=== PATIENT | male | born 1945 | race Caucasian/White ===

== ENCOUNTER 2017-04-02 12:00 | Inpatient (IN) | payer MEDICARE, OTHER ==
[2017-04-02] VITALS (12 sets, daily range): BP systolic 84–124; BP diastolic 50–79
[~2017-04-02] VITALS: Ht 175.3 cm; Wt 75.3 kg
--- NOTE | ~2017-04-02 | CON ---
[place], [place] REPORT OF CONSULTATION NAME: MARNI DONALDSON JR [facility] #: [id number] UNIT #: [id number] ROOM: 528 DOCTOR: DEDE ISAAC MD BIRTHDATE: [birth year] DOS: 04/03/2017 REQUESTING PHYSICIAN: Hospitalist services. REASON FOR CONSULTATION: Assess the patient's possibility of acute pneumonia. HISTORY OF PRESENT ILLNESS: This 71-year-old white male who has been very well known to me from the past. The patient has been hospitalized. Patient in [facility]. The patient was brought to the Emergency Room by the sister. The patient has been noted to have significant change in mental status, has noted severe hypertension with only palpable blood pressure as per sister of the patient. He was also noted with oxygen saturation of 80%. The patient was brought to the hospital eventually for further assessment. The patient has been noted with symptoms of coughing with chest congestion, intermittently recently as well. There were no symptoms of hemoptysis. The patient has not reported any symptoms of chest pain. He has been noted with history of chronic CVA with expressive aphasia, unable to give me any history by himself. Most of the history has been obtained from the patient from my past [facility] and in this hospital. REVIEW OF SYSTEMS: GENERAL: Cannot not be completed by the patient directly; however, the patient's sister reported symptoms of weakness, or fatigue. No symptoms of fever or chills. EYES: There were no blurry vision or diplopia described. ENT: There were no symptoms of sore throat, hoarseness, reported recently. RESPIRATORY: No upper respiratory symptoms. GASTROINTESTINAL: There were no symptoms of nausea, vomiting, diarrhea, abdominal pain, hematemesis, melena, or described incontinence of the stool. GENITOURINARY: There were no symptoms of dysuria, suprapubic pain, or hematuria. MUSCULOSKELETAL: There were no symptoms of joint pain described. SKIN: There were no symptoms of any lesions or rashes of the skin noted. CENTRAL NERVOUS SYSTEM: There were no symptoms of seizures the patient described. Remaining systems was noted partially for this and is reported as negative. PAST MEDICAL HISTORY: 1. Noted with a history of right hemiparesis. The patient has hemiplegia. The patient has expressive aphasia and oropharyngeal dysphagia, which has been treated since April 2014. The patient has regained some of his function with the reduction of the dysphagia with a past stroke. 2. History of uncomplicated severe persistent bronchial asthma. 3. Centrilobular emphysema. 4. Esophagitis. 5. History of seizure activity. 6. Ulcerative colitis. 7. History of recurrent urinary tract infection with past nephrectomy for this patient as well. 8. History of generalized anxiety disorder. [place], [place] REPORT OF CONSULTATION [id number] UNIT #: [id number] ROOM: 528 [facility] [birth year] 9. 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 10. History of orthostatic hypotension. The patient treated with midodrine. PAST SURGICAL HISTORY: 1. Hiatal hernia. 2. Bilateral cataract extraction with lens implantation. 3. Therapeutic bronchoscopy. 4. PEG tube insertion. 5. Coronary transplantation. 6. Nephrectomy on one side for the patient for the past recurrent urinary tract infection, focussed infection, not resolved for the patient with multiple antibiotics and other management. FAMILY HISTORY: Noted, noncontributory. CURRENT MEDICATIONS: Administered for the patient noted as use of midodrine, aspirin, Flomax, omeprazole, Protonix, Keppra, simvastatin, primidone, Remeron, gabapentin, Dulera, Eliquis, Unasyn and other medications. DRUG ALLERGIES: The patient reported an allergy to the Levaquin. PHYSICAL EXAMINATION: GENERAL: A 71-year-old white male who has been noted currently awake and alert, able to say some words for the patient with expressive aphasia, but there was no acute distress noted at the present time. VITAL SIGNS: The patient's height was recorded as 5 feet 9 inches, weight of 166 pounds, BMI 24.5. Normal temperature, respiratory rate 16-24, heart rate 71-81, blood pressure 116/60-105/56. Intake 240, output not documented. Pulse ox saturation on room air was recorded as 96% saturation at this time. HEENT: Examination shows head was atraumatic. Eyes nonicterus. NECK: Supple. CARDIOVASCULAR: S1, S2 audible. LUNGS: The patient was noted with crackles noted in the left lung base. There was no wheezing. ABDOMEN: Soft, nontender, bowel sounds present. EXTREMITIES: The patient was noted without any edema, clubbing or cyanosis. CENTRAL NERVOUS SYSTEM: Right hemiparesis and expressive aphasia. SKIN: No lesions or rashes. MUSCULOSKELETAL: No acute deformities. LABORATORY DATA: CBC yesterday, 04/02/2017, WBC count was noted normal, hemoglobin 11.6, hematocrit 36.4, platelet count 191,000. CMP of the patient, 04/02/2017 was noted as BUN 15, creatinine 1.79. Potassium 3.3, CO2 of 20. Lactic acid 3.0, followup lactic acid noted range of 2.8 to 4.3. The troponin for the patient was noted as normal yesterday and this morning. Total of 3 sets. BMP of the patient that was done this morning was noted with a BUN of 17, creatinine 1.49, glucose 136. CBC this morning, WBC count was noted at 15.4, hemoglobin 10.6, hematocrit 34.0, platelet count was completely normal. Chest x-ray, 1 view, the patient that was done for the patient in the Emergency Room was noted as possibility of small infiltration considered for right lower lung. [place], [place] REPORT OF CONSULTATION NAME: MENDOZA GAMBOAMARNI Nay UNIT #: [id number] ROOM: 528 DOCTOR[facility] B[facility] [birth year] IMPRESSION: 1. The patient will be currently admitted to this hospital. The patient noted with lactic acidosis. The patient with a symptomatic hypotension and possibility of acute pneumonia. The patient's chest congestion was noted with cough for this patient in the right lower lobe, may be related to the acute aspiration. 2. The organism would be considered gram-positive/gram-negative infection because of past, recurrent hospitalizations. 3. Past history of urinary tract infections as well, which were noted recurrent in the past. Currently, seems to be resolved. 4. Oropharyngeal dysphagia secondary to cerebrovascular accident with a right hemiparesis. 5. History of chronic obstructive pulmonary disease and bronchial asthma, does not seem to have any acute exacerbation at the present time. PLAN OF TREATMENT: Continuation of the current antibiotics, bronchodilator for this patient based on his allergy results. The patient has been currently getting Unasyn, which should treat the gram-positive and gram-negative organism as well as anaerobes from aspirations. Monitor respiratory status closely. Obtain a PA lateral chest x-ray of the patient tomorrow to correctly assess the progression of the pneumonia. Usual care. All other supportive plan of therapy, care and plan of management. Additional changes for this patient would be considered based on progression of the illness. Oxygen supplementation for this patient to be given in case of further hypoxia, if it is present. Currently, the patient has been noted normal oxygen saturation on room air. The hypoxia, which has been described at home, most likely would be considered with inability for the pulse ox to record the pulse ox accurately because of the hypotension. Thanks for allowing me to participate in the care of this patient. DEDE ALANIZ MD CM:CONSTR:REPORT OF CONSULTATION 1519 04/04/17 0040 interface
--- NOTE | ~2017-04-02 | PR ---
[place], [place] PROGRESS NOTE NAME: MARNI DONALDSON JR [facility] #: [id number] UNIT #: [id number] ROOM: 528 DOCTOR: KATTY QUEZADA MDDEDE BIRTHDATE: [birth year] DOS: 04/04/2017 SUBJECTIVE: He has been currently resting on his bed. The patient was noted with chest congestion yesterday and this morning. The patient does not appear to be in any distress. He has developed edema of the upper and the lower extremities. The patient was getting intravenous fluids previously, which has been discontinued. Cough has been noted some for this patient, but there was no sputum expectoration noted ____. There was no hemoptysis. OBJECTIVE: VITAL SIGNS: Normal temperature, respiratory rate 18, heart rate 66, blood pressure 160/79. Pulse oxygen saturation recorded as 91% saturation to 94% saturation with the nasal cannula. HEENT: Shows no new change. NECK: Supple. CARDIOVASCULAR: S1, S2 audible. LUNGS: Noted crackles in the right lower lung. ABDOMEN: Soft, nontender, bowel sounds present. CENTRAL NERVOUS SYSTEM: Without any new focal deficit, right hemiparesis noted. EXTREMITIES: Show 2+ pitting edema. LABORATORY DATA: Today's BMP: Normal BUN and creatinine. Sodium 146. The CBC that was done this morning shows hemoglobin 9, hematocrit 28.6 and platelet count 149,000. Blood cultures show no bacterial growth. The CT scan of the chest noted area of consolidation and infiltration in the right lower lobe. IMPRESSION: 1. The patient has been currently noted with fluid overload versus congestive heart failure. 2. History of atrial fibrillation. 3. Acute pneumonia, noted consolidation in the right lower lobe. CT scan of the chest was done just without contrast that was personally reviewed. It shows large consolidation in the right lower lung. 4. Past history of cerebrovascular accident with hemiparesis and oropharyngeal dysphagia. 5. Expressive dysarthria. 6. Acute kidney injury, resolved. PLAN OF TREATMENT: Diuretic therapy would be recommended. The patient's family members wished for the patient to be transferred to [facility] for further medical management. The information has been conveyed to the primary care attending. In the meantime, continue other supportive plan of therapy. No other change in treatment. Await for further fluid administration. [place], [place] PROGRESS NOTE NAME: MARNI DONALDSON JR UNIT #: [id number] ROOM: 528 DOCTOR: DEDE ISAAC MD BIRTHDATE: [birth year] DEDE ALANIZ MD CM:PNTENZIN [id number] DEDE QUEZADA MD 04/04/17 1015 interface
[~2017-04-02 12:00] MED LIST: ALBUTEROL0.09 MG/Ac INH; ALBUTEROL2.5 MG/0.5 INH; ASPIRIN81 M1 PO; B121000 MCG/1 IM; BIO-STATIN1 POW; BUSPAR10 MG PO; BUSPAR5 MG PO; CALCIFEROL8000 IU/ML PO; CARBAMAZEPINE200 MG PO; CEPHALEXIN500 M1 PO; COMBIVENT1 ARO IH; DELTASONE10 MG PO; DEXTROSE IV; DOXYCYCLINE MO100 MG PO; EFFEXOR XR37.5 M1 PO; EFFEXOR XR75 M2 PO; EFFEXOR100 MG PO; EFFEXOR25 MG PO; EFFEXOR75 MG PO; FEOSOL,FER220 MG/5 M PEG; FERROUS SULFAT325 M1 PO; FLOMAX0.4 MG PEG; FLORINEF0.1 MG PO; GABAPENTIN400 MG PO; KEFLEX250 MG PO; KEPPRA100 MG/1 M PO; KEPPRA500 MG PO; KLONOPIN0.5 MG PO; LOPRESSOR PO; MEGACE 40400 MG/10 PO; MIDODRINE HCL2.5 MG PO; MIRALAX POWDER17 GM PO; MIRTAZAPINE15 MG PO; MYSOLINE50 M1 PO; MYSOLINE50 MG PO; Mysoline50 MG GT; PLAVIX75 M1 PO; PREDNISLONE SOD15 ML OU; PREVACID30 M1 GT; PRILOSEC20 MG PO; PROTONIX20 MG PO; PULMICORT INH200 MCG INH; REMERON15 M2 PO; REMERON15 MG GT; SIMVASTATIN20 MG PO; SPIRIVA -- 3018 MCG PO; SPIRIVA18 MCG PO; SYMBICORT1 AE1 IH; SYMBICORT1 AE1 INH; TEGRETOL; TEGRETOL200 MG PO; Tegretol100 MG/5 M PEG; VENLAFAXINE75 MG GT; VITAMIN B11000 MCG/M IM; VITAMIN B121000 MCG PO; VITAMIN D50000 I1 PO; VITAMIN D50000 I3 PO; ZOCOR20 MG GT; ZOCOR40 MG PO; [UNRECOGNIZED DRUG - OTHER] GT; [UNRECOGNIZED DRUG - OTHER] GT
[2017-04-02 13:41] LABS: BASO % 0.2 % (0.0-1.0); EOS % 0.4 % (1.0-4.0); HEMATOCRIT 36.4 % (42.0-52.0); HEMOGLOBIN 11.6 g/dl (14.0-18.0); LYMPH # 1.4 10*3/uL (1.3-4.4); LYMPH % 13.1 % (27.0-41.0); MEAN CELL VOLUME 93.8 fl (80.0-94.0); MEAN CORPUSCULAR HGB 29.9 pg (27.0-31.0); MEAN CORPUSCULAR HGB CONC 31.9 g/dl (33.0-37.0); MONO # 0.8 10*3/uL (0.1-1.0); MONO % 7.5 % (3.0-9.0); NEUT # 8.1 10*3/uL (2.3-7.9); NEUT % 78.5 % (47.0-73.0); NUCLEATED RED BLOOD CELL 0.3 % (0.0-0.0); PLATELET COUNT AUTOMATED 191 10*3/uL (130-400); RED BLOOD COUNT 3.88 10*6/uL (4.50-5.90); RED CELL DISTRI WIDTH 15.7 % (0-14.5); WHITE BLOOD COUNT 10.4 10*3/uL (4.8-10.8)
[2017-04-02 13:57] LABS: ALBUMIN 3.2 gm/dl (3.1-4.5); BILIRUBIN, TOTAL 0.6 mg/dl (0.2-1.0); MAGNESIUM 1.8 mg/dL (1.5-2.1); POTASSIUM 3.3 mmol/L (3.5-5.1); TOTAL PROTEIN 6.1 gm/dL (6.4-8.2); TROPONIN I 0.029 ng/ml (<0.045)
[2017-04-02 14:34] LABS: PROTHROMBIN TIME 10.9 SECONDS (9.0-12.4)
[2017-04-02 16:11] LABS: LA>2 REFLEX 2 HR DRAW NOW
[2017-04-02 16:29] LABS: LA>2 RFLX FOLLOW UP AT 2 HRS 2.8 mmol/L (0.4-2.0)
[2017-04-02 18:22] LABS: LA>2 REFLEX 4 HR DRAW NOW
[2017-04-02] MEDS ORDERED: PRILOSEC20 M1 PO (18:27)
[2017-04-02] MEDS ORDERED: NEURONTIN100 MG PO (18:31)
[2017-04-02] MEDS ORDERED: ZOCOR20 MG PO (18:33)
[2017-04-02] MEDS ORDERED: ASPIR LOW81 MG PO (18:34)
[2017-04-02] MEDS ORDERED: ELIQUIS5 M1 PO (18:35)
[2017-04-02] MEDS ORDERED: MIDODRINE HCL10 MG PO (18:44)
[2017-04-02] MEDS ORDERED: [UNRECOGNIZED DRUG - OTHER] PO (18:46)
[2017-04-03] VITALS: BP 137/66
[2017-04-03 06:37] LABS: HEMOGLOBIN A1c 6.2 % (4.8-5.6)
[2017-04-03 06:51] LABS: MAGNESIUM 1.9 mg/dL (1.5-2.1); PHOSPHOROUS 2.3 mg/dL (2.5-4.9)
[2017-04-03 06:54] LABS: POTASSIUM 4.3 mmol/L (3.5-5.1)
[2017-04-03 06:56] LABS: THYROID STIM HORMONE (HS) 0.481 uIU/ml (0.358-4.75)
[2017-04-03 07:06] LABS: HEMOGLOBIN 10.3 g/dl (14.0-18.0); MEAN CORPUSCULAR HGB 29.6 pg (27.0-31.0); MEAN CORPUSCULAR HGB CONC 30.3 g/dl (33.0-37.0); MEAN PLATELET VOLUME 10.3 fl (9.6-12.3); PLATELET COUNT AUTOMATED 178 10*3/uL (130-400); RED BLOOD COUNT 3.48 10*6/uL (4.50-5.90); WHITE BLOOD COUNT 15.4 10*3/uL (4.8-10.8)
[2017-04-03 07:18] LABS: MEAN CELL VOLUME 97.7 fl (80.0-94.0)
[2017-04-03 07:29] LABS: EOSINOPHIL # 0.3 10*3/uL (0-0.4); EOSINOPHILS 2 % (1-4); LYMPHOCYTE # 1.2 10*3/uL (1.3-4.4); METAMYELOCYTES 3 % (0-0); MONOCYTE # 0.3 10*3/uL (0.1-1.0); NEUTROPHIL # 13.1 10*3/uL (2.3-7.9); NEUTROPHILS 85 % (47-73); TOTAL CELLS COUNTED 100 #CELLS
[2017-04-03 07:30] LABS: PLATELET SUFFICIENCY NORMAL (NORMAL); TOXIC GRANULATION SLIGHT
[2017-04-03 08:26] VITALS: BP 105/56
[2017-04-03 12:00] VITALS: BP 115/68
[2017-04-03 16:00] VITALS: BP 122/63
[2017-04-03 20:00] VITALS: BP 110/49
[2017-04-04] VITALS: BP 126/68
[2017-04-04 06:45] LABS: BUN 13 mg/dl (7-24); CARBON DIOXIDE 19 mmol/L (21-32); CHLORIDE 116 mmol/L (98-107); EST GLOM FILT AFRICAN AMERICAN > 60 ml/min; GLUCOSE 117 mg/dL (65-99); PHOSPHOROUS 2.8 mg/dL (2.5-4.9); POTASSIUM 3.7 mmol/L (3.5-5.1); SODIUM 146 mmol/L (136-145)
[2017-04-04 07:00] LABS: BASO % 0.1 % (0.0-1.0); EOS # 0.1 10*3/uL (0.0-0.4); EOS % 0.7 % (1.0-4.0); HEMATOCRIT 28.6 % (42.0-52.0); IG # 0.1 10*3/uL (0.0-0.1); LYMPH # 0.6 10*3/uL (1.3-4.4); LYMPH % 6.2 % (27.0-41.0); MEAN CELL VOLUME 94.7 fl (80.0-94.0); MEAN CORPUSCULAR HGB 29.8 pg (27.0-31.0); MEAN CORPUSCULAR HGB CONC 31.5 g/dl (33.0-37.0); MEAN PLATELET VOLUME 10.5 fl (9.6-12.3); MONO # 0.3 10*3/uL (0.1-1.0); MONO % 3.3 % (3.0-9.0); NEUT # 8.3 10*3/uL (2.3-7.9); NEUT % 89.2 % (47.0-73.0); PLATELET COUNT AUTOMATED 149 10*3/uL (130-400); RED BLOOD COUNT 3.02 10*6/uL (4.50-5.90); RED CELL DISTRI WIDTH 15.9 % (0-14.5); WHITE BLOOD COUNT 9.4 10*3/uL (4.8-10.8)
[2017-04-04 08:00] VITALS: BP 160/79
[2017-04-04 12:00] VITALS: BP 141/66
[2017-04-05 14:12] LABS: VITAMIN D, 25-HYDROXY 21.5 ng/mL (30-100)
[2017-04-05 14:13] LABS: FOLIC ACID 6.53 ng/mL (>5.38)
== END 2017-04-04 17:54 | disposition short-term general hospital (02) | DRG 871 ==
LOC: ED 12:00 → EDHOLD 15:28 → 5E 15:28
PROVIDERS: Emergency Medicine; Student in an Organized Health Care Education/Training Program
DX: A41.9 Sepsis, unspecified organism (principal); J96.01 Acute respiratory failure with hypoxia; N17.0 Acute kidney failure with tubular necrosis; G93.41 Metabolic encephalopathy; E44.0 Moderate protein-calorie malnutrition; J18.1 Lobar pneumonia, unspecified organism; N18.3 Chronic kidney disease, stage 3 (moderate); R13.12 Dysphagia, oropharyngeal phase; J44.0 Chronic obstructive pulmonary disease with (acute) lower respiratory infection; I69.951 Hemiplegia and hemiparesis following unspecified cerebrovascular disease affecting right dominant side; R65.20 Severe sepsis without septic shock; F43.10 Post-traumatic stress disorder, unspecified; D72.810 Lymphocytopenia; E87.6 Hypokalemia; R47.1 Dysarthria and anarthria; F41.1 Generalized anxiety disorder; F03.90 Unspecified dementia, unspecified severity, without behavioral disturbance, psychotic disturbance, mood disturbance, and anxiety; Z96.1 Presence of intraocular lens; Z68.24 Body mass index [BMI] 24.0-24.9, adult; Z98.42 Cataract extraction status, left eye; Z98.41 Cataract extraction status, right eye; Z93.1 Gastrostomy status; Z79.01 Long term (current) use of anticoagulants; Z79.82 Long term (current) use of aspirin; Z79.899 Other long term (current) drug therapy; I69.991 Dysphagia following unspecified cerebrovascular disease; Z86.718 Personal history of other venous thrombosis and embolism; Z90.5 Acquired absence of kidney; Z87.891 Personal history of nicotine dependence; Z88.1 Allergy status to other antibiotic agents; Z82.49 Family history of ischemic heart disease and other diseases of the circulatory system; Z82.5 Family history of asthma and other chronic lower respiratory diseases; Z82.3 Family history of stroke